=== PATIENT | female | born 1975 | race Caucasian/White ===

== ENCOUNTER 2023-01-04 03:31 | Emergency (ER) | payer MEDICAID ==
[~2023-01-04] VITALS: Ht 154.9 cm; Wt 49.9 kg
[2023-01-04 03:36] VITALS: BP_SYST 152
--- NOTE | 2023-01-04 03:36 | NUR ---
Patient placed in ER bed 5 for evaluation. Patient changed to a gown for evaluation. Bed is placed in lowest position with side rails up. Instructed patient to call for assistance or to notify ED staff for any changes in condition or worsening of symptoms while waiting to be seen by a provider. Patient verbalized understanding.
--- NOTE | 2023-01-04 03:38 | NUR ---
Dr. Jeffers at bedside examining the patient.
[2023-01-04] MEDS ORDERED: cefTRIAXone 2 GM VIAL IM ONE (03:45)
[2023-01-04] MEDS ORDERED: ceFAZolin SODIUM 1 GM VIAL IM ONE (04:15)
[2023-01-04] MEDS ORDERED: LIDOCAINE 1%, 20 ML MDV 20 ML ONE ×2 (04:17→04:58)
[2023-01-04] MEDS ORDERED: ceFAZolin SODIUM 1 GM VIAL ONE (04:57)
[2023-01-04] MEDS ORDERED: NAPR-690 PO (04:59)
[2023-01-04] MEDS ORDERED: CEPH-548 PO (04:59)
--- NOTE | 2023-01-04 05:09 | NUR ---
Patient given written and verbal discharge instructions and verbalizes understanding. ER MD discussed with patient the results and treatment provided. Patient in stable condition. ID arm band removed. Rx of ancef and naproxen given. Patient educated on pain management and to follow up with PMD. Opportunity for questions provided and answered. Medication side effect fact sheet provided.
--- NOTE | 2023-01-06 09:32 | NUR ---
[employer] re: homelessness Follow up call made to the patient regarding her recent visit here to the hospital. I was calling to see if she was in need of referrals related to housing and local [facility]. I requested that she return my call at her earliest convenience. Should the patient return my call, requested resources related to social needs may be provided to her. An email was also sent to the ER/ICU director, Lisa Brady indicating that a code correction may be in order if the patient is indeed, not homeless.
== END 2023-01-04 05:09 | disposition home or self-care (01) ==
LOC: SED 03:31
DX: L02.414 Cutaneous abscess of left upper limb (principal); L02.413 Cutaneous abscess of right upper limb; F11.10 Opioid abuse, uncomplicated; Z79.899 Other long term (current) drug therapy
CPT/HCPCS: 99284; 10061; 96372; J0690; J2001